=== PATIENT | female | born 2000 | race Caucasian/White ===

== ENCOUNTER 2023-02-04 17:51 | Emergency (ER) | payer OTHER, SELFPAY ==
--- NOTE | 2023-02-04 17:53 | ED.EAR ---
HPI - Ear Problem General Chief complaint: Ear Stated complaint: SWOLLEN GLANDS IN NECK/EARACHE Time Seen by Provider: 02/04/23 17:53 Source: patient and RN notes reviewed History of Present Illness HPI Narrative: Patient is a 22-year-old female presents to urgent care with complaints of left lymph node swelling and left ear pain. Patient states that it started approximately 1 week ago and she has been taking ibuprofen. Patient states that she has intermittent sore throat but nothing consistent. Denies any fevers, nausea or vomiting. Denies any recent illness. No other acute complaints. No acute distress noted. Patient aware of the plan of care. Some parts of this dictation were generated by voice recognition software and may contain typographical and/or grammatical inaccuracies. Related Data Home Medications Medication Instructions Recorded Confirmed levothyroxine 50 mcg tablet 50 mcg PO DAILY 02/04/23 02/04/23 norethindrone 1 mg-ethinyl 1 tablet PO DAILY 02/04/23 02/04/23 estradiol 35 mcg tablet ([place]) Allergies Allergy/AdvReac Type Severity Reaction Status Date / Time No Known Allergies Allergy Mild Verified 02/04/23 17:58 Review of Systems Review of Systems: CONSTITUTIONAL: Denies fever, chills, or sweats. EYES: Denies visual changes, redness, or discharge. ENT: Reports of left lymph node swelling, left ear pain and sore throat CARDIOVASCULAR: Denies chest pain, palpitations, or edema. RESPIRATORY: Denies cough or dyspnea. GASTROINTESTINAL: Denies abdominal pain, nausea, vomiting, or diarrhea. GENITOURINARY: Denies dysuria or hematuria. SKIN: Denies rash or itching. MUSCULOSKELETAL: Denies back pain, joint pain, or myalgia. NEUROLOGIC: Denies headache, numbness, or weakness. All other systems reviewed are negative, except as documented in HPI. PMFSH Comments At the time of my signature, I reviewed and agree with the nursing past medical, surgical, social, and family history. There is no relevant family history pertinent to the patient complaint. Exam Narrative: GENERAL: This is a well-nourished, well-developed patient, in no apparent distress. HEAD: normocephalic, atraumatic. EYES: PERRL. Sclera clear/white. Vision is grossly intact. EARS: External ears normal, auditory canals clear and without drainage, TMs normal without perforation. Hearing grossly intact. NOSE: External nose normal with no obvious nasal discharge, nares without redness, no rhinorrhea. THROAT: Mucous membranes moist, posterior pharynx clear. Mild postnasal drainage NECK: Neck supple, non-tender left submandibular lymphadenopathy SKIN: warm, intact with no suspicious lesions or rash, good texture and turgor. NEURO: awake, alert, and oriented to person, place and time. There were no obvious focal neurologic abnormalities. EXTREMITIES: No clubbing, cyanosis, or edema. Course Course Level of Care: Express Care Visit Vital Signs Vital signs: Vital Signs Temperature 98.7 F 02/04/23 18:06 Pulse Rate 80 02/04/23 18:06 Respiratory Rate 16 02/04/23 18:06 Blood Pressure 131/80 02/04/23 18:06 Pulse Oximetry 100 02/04/23 18:06 Temperature 98.7 F 02/04/23 18:06 Pulse Rate 80 02/04/23 18:06 Respiratory Rate 16 02/04/23 18:06 Blood Pressure 131/80 02/04/23 18:06 Pulse Oximetry 100 02/04/23 18:06 Reviewed Medical Decision Making MDM Narrative Medical decision making narrative: Reviewed lab results with the patient. She is aware that strep swab was negative. Educated patient on culture we will call within 72 hours if culture is positive and antibiotics are necessary. Lymph node swelling is typically viral and would recommend continuing ibuprofen/Tylenol and warm compress. May also use a daily antihistamine for ear discomfort. There is no ear infection noted at this time. Do not put anything in the ear such as [id number] ear drops, water, Q-tips or peroxide. If you develops any
[2023-02-04 18:06] VITALS: BP 131/80; PULSE 80; RESP 16; TEMP 37.1; O2SAT 100
== END 2023-02-04 18:31 | disposition home or self-care (01) ==
PROVIDERS: Emergency Provider Nurse Practitioner Family; PCP Family Medicine
DX: R59.9 Enlarged lymph nodes, unspecified (principal); M41.9 Scoliosis, unspecified
CPT/HCPCS: 87081; 87880; 99213; G0463